=== PATIENT | female | born 1960 | race Caucasian/White ===

== ENCOUNTER 2017-03-14 11:32 | Emergency (ER) | payer MEDICARE ==
[~2017-03-14] VITALS: Ht 165.1 cm; Wt 94.5 kg
[~2017-03-14 11:32] MED LIST: ASPI-621 PO; CARV6.2512 PO; CEFD300C37 PO; DOXY100T PO; FLUT1DIS3 INH; LISI-170 PO; POLY17PO5 PO
[2017-03-14 11:39] VITALS: BP 148/85
[2017-03-14 12:33] LABS: RAPID INFLUENZA A Negative (Negative); RAPID INFLUENZA B Negative (Negative)
== END 2017-03-14 13:00 | disposition home or self-care (01) ==
LOC: ED 12:00
DX: B34.9 Viral infection, unspecified (principal); J00 Acute nasopharyngitis [common cold]
CPT/HCPCS: 29125; 71020; 87400

== ENCOUNTER 2020-08-12 05:00 | Emergency (ER) | payer MEDICARE ==
[~2020-08-12] VITALS: Ht 165.1 cm; Wt 84.4 kg
[~2020-08-12 05:00] MED LIST changes: +ACID1TAB7 PO; -ASPI-621 PO; +ASPI81TA45 PO; +ATOR40TA78 PO; +CYCL5TAB PO
--- NOTE | 2020-08-12 06:07 | NUR ---
PATIENT TO ROOM FROM [facility] AMBULATES WITH STEADY GAIT
--- NOTE | 2020-08-12 06:10 | NUR ---
ASSESSMENT MADE. CHART UP FOR MD TO SEE. C/O EPIGASTRIC PAIN SINCE 399. BURNING DESCRIBED. + N/V
--- NOTE | 2020-08-12 06:14 | NUR ---
PATIENT TO XRAY
[2020-08-12 06:20] LABS: BASOPHILS % (AUTO) 1 % (0-1); EOSINOPHILS % (AUTO) 0 % (1-7); LYMPHOCYTES % (AUTO) 12 % (22-44); MEAN CORPUSCULAR HEMOGLOBIN 32.9 pg (27.0-34.8); MEAN CORPUSCULAR HGB CONC 34.8 g/dL (32.4-35.8); MEAN PLATELET VOLUME 8.1 fL (7.4-10.4); MONOCYTES % (AUTO) 3 % (2-9); NEUTROPHILS % (AUTO) 84 % (42-75); PLATELET COUNT 286 x10^3/uL (130-400); RED BLOOD COUNT 4.52 x10^6/uL (3.82-5.3); RED CELL DISTRIBUTION WIDTH 13.1 % (9.6-15.2)
[2020-08-12 06:22] LABS: MD NO
--- NOTE | 2020-08-12 06:23 | NUR ---
BACK FROM X RAY. AWAITING RESULT.
[2020-08-12 06:30] LABS: ALANINE AMINOTRANSFERASE 26 U/L (12-78); ALBUMIN 4.5 g/dL (3.4-5.0); ANION GAP 8 mmol/L (5-15); CALCIUM 9.6 mg/dL (8.5-10.1); CHLORIDE 103 mmol/L (98-107); CREATININE 0.67 mg/dL (0.55-1.02)
[2020-08-12] MEDS ORDERED: OMNIPAQUE 350 MG/ML, 100ML BOTTLE ONE (06:31)
[2020-08-12 06:32] LABS: ALKALINE PHOSPHATASE 94 U/L (45-117); BILIRUBIN,TOTAL 1.1 mg/dL (0.2-1.0); TOTAL PROTEIN 8.6 g/dL (6.4-8.2)
[2020-08-12] MEDS ORDERED: ONDANSETRON 2MG/ML, 2ML ONE (06:34)
[2020-08-12] MEDS ORDERED: DICYCLOMINE 10 MG/ML, 2ML ONE (06:35)
[2020-08-12] MEDS ORDERED: FAMOTIDINE 20 MG/2 ML ONE (06:35)
--- NOTE | 2020-08-12 06:44 | NUR ---
PATIENT MEDICATED. IVF HUNG. PATIENT TO CT SCAN.
[2020-08-12] MEDS ORDERED: SODIUM CHLORIDE 0.9% 1,000ML IVBOLUS ONE (07:00)
[2020-08-12] MEDS ORDERED: FAMOTIDINE 20 MG/2 ML IVPush ONE (07:00)
[2020-08-12] MEDS ORDERED: SODIUM CHLORIDE FLUSH 10ML SYR IVF ONE (07:00)
[2020-08-12] MEDS ORDERED: DICYCLOMINE 10 MG/ML, 2ML IM ONE (07:00)
[2020-08-12] MEDS ORDERED: ONDANSETRON 2MG/ML, 2ML IVPush ONE (07:00)
--- NOTE | 2020-08-12 07:01 | NUR ---
REPORT FROM WILLIAN SALDAÑA. PT RETURNED FROM IMAGING. LAYING BACK IN BED. IV LEAKING, PROBLEM CORRECTED, NEW TEGADERM APPLIED. SIDE RAILS UP, CALL LIGHT IN REACH.
[2020-08-12 07:09] LABS: MICROSCOPIC INDICATED
--- NOTE | 2020-08-12 08:06 | NUR ---
PT UP AMBULATING INDEPENDENTLY TO BATHROOM AND BACK TO ED ROOM. PT DRESSING AT THIS TIME FOR DC. PT VERBALIZES RELIEF FROM ABD PAIN.
[2020-08-13] MEDS ORDERED: ACETAMINOPHEN 325 MG TABLET PO PRN (14:00)
[2020-08-13] MEDS ORDERED: ENOXAPARIN 40 MG/0.4 ML SQ SCH (14:00)
[2020-08-13] MEDS ORDERED: morphine SULFATE 10 MG/ML, 1ML IVPush PRN (14:00)
[2020-08-13] MEDS ORDERED: HYDROcodone/APAP 5/325 TABLET PO PRN (14:00)
[2020-08-13] MEDS ORDERED: ENALAPRILAT 1.25 MG/ML, 2ML IVPush PRN (14:00)
[2020-08-13] MEDS ORDERED: ONDANSETRON ODT 4 MG PO PRN (14:00)
[2020-08-13] MEDS ORDERED: LACTATED RINGERS 1,000 ML IV SCH (14:00)
[2020-08-13 15:41] VITALS: BP 106/76
[2020-08-14] MEDS ORDERED: ASPIRIN 81 MG TABLET EC PO SCH (06:00)
[2020-08-14] MEDS ORDERED: LISINOPRIL 10 MG TABLET PO SCH (09:00)
== END 2020-08-12 08:09 | disposition home or self-care (01) ==
LOC: ED 08:00 → UNDOADMOB 08-13 13:54 → EDIP 08-13 13:54 → 4NW 08-13 15:25 → EDIP 08-13 15:46
DX: K52.9 Noninfective gastroenteritis and colitis, unspecified (principal); R10.13 Epigastric pain; R11.2 Nausea with vomiting, unspecified; Z90.49 Acquired absence of other specified parts of digestive tract; Z87.891 Personal history of nicotine dependence
CPT/HCPCS: 36415; 74022; 74177; 80053; 81001; 83690; 85025; 87086; 96361; 96372; 96374; 96375; 99285; J0500; J2405; J7030; 83036; Q9967

== ENCOUNTER 2020-08-13 09:49 | Observation (INO) | payer SELFPAY ==
[~2020-08-13] VITALS: Ht 165.1 cm; Wt 84.7 kg
--- NOTE | 2020-08-13 10:52 | NUR ---
TO [facility] FROM LOBBY
--- NOTE | 2020-08-13 11:16 | NUR ---
URINE COLLECTED/WALKED TO LAB. RESEARCH PROGRAM ASSISTANT [facility]ARRISON BLOODWORK. ORDERS NOTED FOR IV, MEDIC STUDENT TO START. PT IN XRAY.
[2020-08-13 11:22] LABS: MICROSCOPIC INDICATED
[2020-08-13 11:22] LABS: BASOPHILS % (AUTO) 1 % (0-1); EOSINOPHILS % (AUTO) 0 % (1-7); LYMPHOCYTES % (AUTO) 15 % (22-44); MEAN CORPUSCULAR HEMOGLOBIN 32.3 pg (27.0-34.8); MEAN CORPUSCULAR HGB CONC 34.3 g/dL (32.4-35.8); MEAN PLATELET VOLUME 7.8 fL (7.4-10.4); MONOCYTES % (AUTO) 3 % (2-9); NEUTROPHILS % (AUTO) 82 % (42-75); PLATELET COUNT 286 x10^3/uL (130-400); RED BLOOD COUNT 4.74 x10^6/uL (3.82-5.3); RED CELL DISTRIBUTION WIDTH 13.1 % (9.6-15.2)
[2020-08-13] MEDS ORDERED: FAMOTIDINE 20 MG/2 ML IVPush ONE (11:30)
[2020-08-13] MEDS ORDERED: SODIUM CHLORIDE FLUSH 10ML SYR IVF ONE (11:30)
[2020-08-13] MEDS ORDERED: METOCLOPRAMIDE 5 MG/ML, 2ML IVPush ONE (11:30)
[2020-08-13] MEDS ORDERED: SODIUM CHLORIDE 0.9% 1,000ML IVBOLUS ONE (11:30)
[2020-08-13 11:31] LABS: ALBUMIN 4.5 g/dL (3.4-5.0); ANION GAP 10 mmol/L (5-15); CALCIUM 9.4 mg/dL (8.5-10.1); CHLORIDE 105 mmol/L (98-107)
[2020-08-13 11:34] LABS: ALANINE AMINOTRANSFERASE 29 U/L (12-78); ALKALINE PHOSPHATASE 91 U/L (45-117); BILIRUBIN,TOTAL 1.5 mg/dL (0.2-1.0); CREATININE 0.84 mg/dL (0.55-1.02); TOTAL PROTEIN 8.4 g/dL (6.4-8.2)
[2020-08-13] MEDS ORDERED: METOCLOPRAMIDE 5 MG/ML, 2ML ONE (11:51)
[2020-08-13] MEDS ORDERED: FAMOTIDINE 20 MG/2 ML ONE (11:51)
--- NOTE | 2020-08-13 11:58 | NUR ---
IV STARTED UNABLE TO DRAW LACTIC. NS BOLUS INFUSING, MEDS GIVEN PER ERP ORDER FOR EPIGASTRIC PAIN AND N/V. CALL LIGHT WITHIN REACH, VS UPDATED IN COMPUTER.
--- NOTE | 2020-08-13 12:03 | NUR ---
PT ASKING FOR WATER. PO CHALLENGE ORDERED, WATER PROVIDED.
[2020-08-13] MEDS ORDERED: POTASSIUM CHLORIDE 20 MEQ PACKET PO ONE (12:30)
--- NOTE | 2020-08-13 12:48 | NUR ---
PT STATES NAUSEA AND EPIGASTRIC PAIN UNCHANGED. PER ERP, PT TO BE ADMITTED, NPO. PT ADVISED OF POC AND NPO. MED REC COMPLETED. PT SLEEPING, NAD. CALL LIGHT WITHIN REACH.
[2020-08-13] MEDS ORDERED: DICYCLOMINE 10 MG/ML, 2ML ONE (12:59)
[2020-08-13] MEDS ORDERED: POTASSIUM CHLORIDE 40 MEQ in SODIUM CHLORIDE 0.9% 500 ML IV ONE (13:00)
[2020-08-13] MEDS ORDERED: DICYCLOMINE 10 MG/ML, 2ML IM ONE (13:00)
--- NOTE | 2020-08-13 13:16 | NUR ---
PT REMEDICATED PER ERP ORDER FOR DECREASED BUT PERSISTENT PAIN RATED 6/10. REPORT TO SALBADOR DORSEY, PT READY FOR TRANSPORT.
[2020-08-13 14:02] VITALS: BP 112/64
[2020-08-13 14:19] VITALS: BP 109/78
[2020-08-13] MEDS ORDERED: PROMETHAZINE 25 MG/ML, 1ML IM PRN (16:30)
[2020-08-13] MEDS ORDERED: HYDROcodone/APAP 5/325 TABLET PO PRN (16:30)
[2020-08-13] MEDS ORDERED: GUAIFENESIN/DM 200-20MG, 10ML UDC PO PRN (16:30)
[2020-08-13] MEDS ORDERED: ONDANSETRON 2MG/ML, 2ML IVPush PRN (16:30)
[2020-08-13] MEDS ORDERED: ENALAPRILAT 1.25 MG/ML, 2ML IVPush PRN (16:30)
[2020-08-13] MEDS ORDERED: ENOXAPARIN 40 MG/0.4 ML SQ SCH (16:30)
[2020-08-13] MEDS ORDERED: ONDANSETRON ODT 4 MG PO PRN (16:30)
[2020-08-13] MEDS: ACETAMINOPHEN 325 MG TABLET PO PRN (17:45)
[2020-08-13] MEDS: LACTATED RINGERS 1,000 ML IV SCH (17:47)
[2020-08-13 19:11] VITALS: BP 109/67
[2020-08-13] MEDS ORDERED: MELATONIN 5 MG TABLET PO PRN (21:00)
[2020-08-14 03:07] VITALS: BP 114/73
[2020-08-14] MEDS: ACETAMINOPHEN 325 MG TABLET PO PRN (04:10)
[2020-08-14] MEDS: LACTATED RINGERS 1,000 ML IV SCH (05:18)
[2020-08-14 05:36] LABS: BASOPHILS % (AUTO) 1 % (0-1); EOSINOPHILS % (AUTO) 1 % (1-7); LYMPHOCYTES % (AUTO) 42 % (22-44); MEAN CORPUSCULAR HGB CONC 34.6 g/dL (32.4-35.8); MEAN PLATELET VOLUME 7.8 fL (7.4-10.4); MONOCYTES % (AUTO) 7 % (2-9); NEUTROPHILS % (AUTO) 49 % (42-75); PLATELET COUNT 228 x10^3/uL (130-400); RED BLOOD COUNT 4.16 x10^6/uL (3.82-5.3); RED CELL DISTRIBUTION WIDTH 13.1 % (9.6-15.2)
[2020-08-14 05:42] LABS: CALCIUM 9.1 mg/dL (8.5-10.1); CHLORIDE 104 mmol/L (98-107)
[2020-08-14 05:48] LABS: ALANINE AMINOTRANSFERASE 23 U/L (12-78); ALBUMIN 3.7 g/dL (3.4-5.0); ALKALINE PHOSPHATASE 72 U/L (45-117); ANION GAP 4 mmol/L (5-15); BILIRUBIN,TOTAL 1.4 mg/dL (0.2-1.0); CREATININE 0.74 mg/dL (0.55-1.02); TOTAL PROTEIN 6.6 g/dL (6.4-8.2)
[2020-08-14 07:14] VITALS: BP 121/76
[2020-08-14] MEDS ORDERED: PANTOPRAZOLE 40MG TABLET PO SCH (07:30)
[2020-08-14] MEDS ORDERED: LISINOPRIL 10 MG TABLET PO SCH (09:00)
[2020-08-14] MEDS ORDERED: PANT40TA6 PO (10:12)
== END 2020-08-14 12:52 | disposition home or self-care (01) ==
LOC: ED 10:40 → EDIP 12:49 → INTOOBSV 12:49 → 4NW 13:59 → EDIP 15:24 → 4NW 15:46 → 3N 16:48 → 4NW 16:48
PROVIDERS: ADMIT Hospitalist; ATTEND Hospitalist
DX: R11.2 Nausea with vomiting, unspecified (principal); R10.13 Epigastric pain; K52.9 Noninfective gastroenteritis and colitis, unspecified; E87.1 Hypo-osmolality and hyponatremia; K56.7 Ileus, unspecified; I10 Essential (primary) hypertension; E87.6 Hypokalemia; E86.0 Dehydration; M79.7 Fibromyalgia; M48.00 Spinal stenosis, site unspecified; F43.10 Post-traumatic stress disorder, unspecified; Z87.891 Personal history of nicotine dependence; Z79.82 Long term (current) use of aspirin; Z79.899 Other long term (current) drug therapy; Z90.710 Acquired absence of both cervix and uterus; Z90.49 Acquired absence of other specified parts of digestive tract
CPT/HCPCS: 36415; 74022; 80053; 81001; 83036; 83605; 83690; 83735; 85025; 87086; 93005; 96361; 96372; 96374; 96375; 99285; G0378; J0500; J1650; J2550; J2765; J7030; J7120

== ENCOUNTER 2020-09-19 10:14 | Emergency (ER) | payer SELFPAY ==
[~2020-09-19] VITALS: Ht 165.1 cm; Wt 84.2 kg
[~2020-09-19 10:14] MED LIST changes: +PANT40TA6 PO
--- NOTE | 2020-09-19 10:52 | NUR ---
[employer]: PT TO ROOM FROM LOBBY.
--- NOTE | 2020-09-19 10:53 | NUR ---
PT AMBULATORY TO ROOM FROM [facility], CHANGED INTO GOWN. MONITORS IN PLACE. CALL LIGHT WITHIN REACH. PT C/O EPIGASTRIC ABD PAIN. PT STATES VOMITING STARTING FRIDAY, NOW FEELS NAUSEOUS WITH PAIN.
[2020-09-19 11:11] LABS: BASOPHILS % (AUTO) 1 % (0-1); EOSINOPHILS % (AUTO) 0 % (1-7); LYMPHOCYTES % (AUTO) 22 % (22-44); MEAN CORPUSCULAR HEMOGLOBIN 32.7 pg (27.0-34.8); MEAN CORPUSCULAR HGB CONC 35.1 g/dL (32.4-35.8); MEAN PLATELET VOLUME 7.8 fL (7.4-10.4); MONOCYTES % (AUTO) 6 % (2-9); NEUTROPHILS % (AUTO) 71 % (42-75); PLATELET COUNT 275 x10^3/uL (130-400); RED BLOOD COUNT 4.59 x10^6/uL (3.82-5.3); RED CELL DISTRIBUTION WIDTH 13.2 % (9.6-15.2)
[2020-09-19] MEDS ORDERED: KETOROLAC 30 MG/1 ML ONE (11:12)
[2020-09-19] MEDS ORDERED: ONDANSETRON 2MG/ML, 2ML ONE (11:12)
[2020-09-19] MEDS ORDERED: FAMOTIDINE 20 MG/2 ML ONE (11:12)
[2020-09-19 11:23] LABS: ALANINE AMINOTRANSFERASE 51 U/L (12-78); ALBUMIN 4.1 g/dL (3.4-5.0); ANION GAP 10 mmol/L (5-15); CALCIUM 9.6 mg/dL (8.5-10.1); CHLORIDE 102 mmol/L (98-107); CREATININE 0.72 mg/dL (0.55-1.02)
[2020-09-19 11:25] LABS: ALKALINE PHOSPHATASE 85 U/L (45-117); BILIRUBIN,TOTAL 1.7 mg/dL (0.2-1.0)
--- NOTE | 2020-09-19 11:25 | NUR ---
PIV PLACED, PT MEDICATED PER EMAR. NADN/VSS. CALL LIGHT WITHIN REACH. NO NEEDS AT THIS TIME
[2020-09-19] MEDS ORDERED: SODIUM CHLORIDE FLUSH 10ML SYR IVF ONE (12:00)
[2020-09-19] MEDS ORDERED: KETOROLAC 30 MG/1 ML IVPush ONE (12:00)
[2020-09-19] MEDS ORDERED: SODIUM CHLORIDE 0.9% 1,000ML IVBOLUS ONE (12:00)
[2020-09-19] MEDS ORDERED: FAMOTIDINE 20 MG/2 ML IVPush ONE (12:00)
[2020-09-19] MEDS ORDERED: ONDANSETRON 2MG/ML, 2ML IVPush ONE (12:00)
[2020-09-19 12:03] LABS: MICROSCOPIC INDICATED
--- NOTE | 2020-09-19 12:34 | NUR ---
PT RESTING ON GURSAN JOSE, IVF INFUSING. NADN/VSS. CALL LIGHT WITHIN REACH. VSS/NADN.
--- NOTE | 2020-09-19 14:11 | NUR ---
ERP AT BS
[2020-09-19 14:12] VITALS: BP 115/67
--- NOTE | 2020-09-19 15:19 | NUR ---
Patient given discharge instructions and RX, they have confirmed that they understand the instructions. Patient ambulatory with steady gait.
== END 2020-09-19 15:21 | disposition home or self-care (01) ==
LOC: ED 11:03
DX: R11.2 Nausea with vomiting, unspecified (principal); E86.0 Dehydration; R10.9 Unspecified abdominal pain; R19.7 Diarrhea, unspecified; I10 Essential (primary) hypertension; R50.9 Fever, unspecified
CPT/HCPCS: 36415; 74021; 80053; 81001; 83690; 85025; 96361; 96374; 96375; 99285; J1885; J2405; J7030

== ENCOUNTER 2020-10-04 11:23 | Emergency (ER) | payer SELFPAY ==
[~2020-10-04] VITALS: Ht 165.1 cm; Wt 83.4 kg
--- NOTE | 2020-10-04 11:29 | NUR ---
PT AMBULATES WELL TO ROOM 18.
--- NOTE | 2020-10-04 11:42 | NUR ---
pt presents to ed with c/o abdominal pain in upper abdomen midline, N/V since 0430 this morning. pt states they took Zofran this morning that did not help. pt states they were seen here 2 weeks ago for same sx. pt a&o, resps even and unlabored, vss. TETE Machado at bedside for eval.
[2020-10-04] MEDS ORDERED: ONDANSETRON 2MG/ML, 2ML ONE (11:54)
[2020-10-04] MEDS ORDERED: MAALOX/HYOSCYAMINE/LIDOCAINE 45 ML BTL ONE (11:54)
[2020-10-04] MEDS ORDERED: MORPHINE SULFATE 4 MG/ML, 1ML ONE ×2 (11:54→13:14)
[2020-10-04] MEDS: MORPHINE SULFATE 4 MG/ML, 1ML IVPush PRN ×2 (11:56→13:16)
[2020-10-04 11:59] LABS: BASOPHILS % (AUTO) 0 % (0-1); EOSINOPHILS % (AUTO) 0 % (1-7); LYMPHOCYTES % (AUTO) 16 % (22-44); MEAN CORPUSCULAR HEMOGLOBIN 32.9 pg (27.0-34.8); MEAN CORPUSCULAR HGB CONC 34.6 g/dL (32.4-35.8); MEAN PLATELET VOLUME 7.6 fL (7.4-10.4); MONOCYTES % (AUTO) 3 % (2-9); NEUTROPHILS % (AUTO) 81 % (42-75); PLATELET COUNT 259 x10^3/uL (130-400); RED BLOOD COUNT 4.63 x10^6/uL (3.82-5.3); RED CELL DISTRIBUTION WIDTH 13.3 % (9.6-15.2)
[2020-10-04] MEDS ORDERED: ONDANSETRON 2MG/ML, 2ML IVPush ONE (12:00)
[2020-10-04] MEDS ORDERED: MAALOX/HYOSCYAMINE/LIDOCAINE 45 ML BTL PO ONE (12:00)
[2020-10-04] MEDS ORDERED: SODIUM CHLORIDE FLUSH 10ML SYR IVF ONE (12:00)
[2020-10-04] MEDS ORDERED: SODIUM CHLORIDE 0.9% 1,000ML IVBOLUS ONE (12:00)
--- NOTE | 2020-10-04 12:01 | NUR ---
pt medicated per order, tolerated well, PIV placed, labs drawn and sent, fluids infusing, vss.
[2020-10-04 12:10] LABS: ALBUMIN 4.3 g/dL (3.4-5.0); ANION GAP 9 mmol/L (5-15); CALCIUM 9.6 mg/dL (8.5-10.1); CHLORIDE 105 mmol/L (98-107)
[2020-10-04 12:14] LABS: ALANINE AMINOTRANSFERASE 21 U/L (12-78); ALKALINE PHOSPHATASE 89 U/L (45-117); BILIRUBIN,TOTAL 1.6 mg/dL (0.2-1.0); CREATININE 0.74 mg/dL (0.55-1.02); TOTAL PROTEIN 8.2 g/dL (6.4-8.2)
--- NOTE | 2020-10-04 12:30 | NUR ---
pt resting in bed, resps even and unlabored, vss, nadn. fluids infusing, call light in reach.
--- NOTE | 2020-10-04 13:03 | NUR ---
pt ambulatory to restroom with steady gait
--- NOTE | 2020-10-04 13:41 | NUR ---
PT TO CT
--- NOTE | 2020-10-04 13:49 | NUR ---
PT BACK FROM CT
--- NOTE | 2020-10-04 14:04 | NUR ---
pt states pain under control with second dose of morphine, resting comofrtably in bed, vss, nadn.
--- NOTE | 2020-10-04 14:22 | NUR ---
preceptor RN note: pt denies pain. pt drowsy but oriented x 4, resps even and unlabored. spow 85% on room air, oxygen applied at 2L/min via nasal cannula. all monitors remain in place. awaiting provider recheck and dispo.
--- NOTE | 2020-10-04 14:45 | NUR ---
TASK RN NOTE: PT ASLEEP IN BED, NAD NOTED AT THIS TIME. RESPIRATIONS EVEN AND UNLABORED. SIDE RAILS UP, CALL LIGHT IN REACH.
[2020-10-04] MEDS ORDERED: PROMETHAZINE 25 MG/ML, 1ML ONE (15:48)
[2020-10-04 15:51] VITALS: BP 126/76
[2020-10-04] MEDS ORDERED: PROMETHAZINE 25 MG/ML, 1ML IM ONE (16:00)
--- NOTE | 2020-10-04 16:20 | NUR ---
TASK RN: Patient given discharge instructions and they have confirmed that they understand the instructions. Patient ambulatory with steady gait.
== END 2020-10-04 16:21 | disposition home or self-care (01) ==
LOC: ED 11:32
DX: R10.84 Generalized abdominal pain (principal); R11.2 Nausea with vomiting, unspecified; R19.7 Diarrhea, unspecified; R94.31 Abnormal electrocardiogram [ECG] [EKG]; I10 Essential (primary) hypertension; Z90.49 Acquired absence of other specified parts of digestive tract; Z90.710 Acquired absence of both cervix and uterus
CPT/HCPCS: 36415; 74021; 80053; 83690; 85025; 93005; 96361; 96372; 96374; 96375; 96376; 99285; J2270; J2405; J2550; J7030